=== PATIENT | female | born 1960 | race Two or more races ===

== ENCOUNTER 2016-11-01 07:46 | Outpatient (CLI) | payer MEDICARE ==
[2016-11-01] MEDS ORDERED: REGADENOSON 0.4 MG/5 ML DISP.SYRIN IVP ONE (09:30)
== END 2016-11-01 23:59 | disposition home or self-care (01) ==
LOC: NM 07:46
PROVIDERS: ATTEND Internal Medicine Interventional Cardiology
DX: R06.02 Shortness of breath (principal)
CPT/HCPCS: 78452; A9502; J2785

== ENCOUNTER 2017-05-03 04:59 | Inpatient (IN) | payer MEDICARE, MEDICAID ==
[~2017-05-03] VITALS: Ht 157.5 cm; Wt 76.2 kg
[2017-05-03] MEDS ORDERED: CEFAZOLIN SODIUM/DEXTROSE,ISO 50 ML IV ONE (05:12)
[2017-05-03] MEDS ORDERED: BACITRACIN 50000 UNITS/VIAL ONE (06:18)
[2017-05-03] MEDS ORDERED: ANESTHESIA TRAY IN PYXIS 1 EA TRAY MC ONE (06:18)
[2017-05-03] MEDS ORDERED: KETOROLAC TROMETHAMINE INJ 60 MG/2 ML VIAL IM ONE (06:18)
[2017-05-03] MEDS ORDERED: KETOROLAC TROMETHAMINE INJ 30 MG/ML VIAL ONE (06:20)
[2017-05-03] MEDS ORDERED: MORPHINE SULFATE/PF 10 MG/10ML (1MG/ML) AMPUL ONE (06:51)
[2017-05-03] MEDS ORDERED: MIDAZOLAM HCL 2 MG/2ML VIAL ONE (06:52)
[2017-05-03] MEDS ORDERED: TRANEXAMIC ACID 3,000 MG in SODIUM CHLORIDE IRRIG SOLUTION 70 ML IR ONE (07:30)
[2017-05-03] MEDS ORDERED: SEVOFLURANE 250 ML BOTTLE IH ONE (07:38)
[2017-05-03] MEDS ORDERED: HYDROMORPHONE 2 MG/1 ML SDV ONE (08:16)
[2017-05-03] MEDS ORDERED: FENTANYL PF 100MCG/2ML AMPUL ONE (08:23)
[2017-05-03] MEDS ORDERED: COLACE 250 MG CAPSULE PO PRN (09:00)
[2017-05-03] MEDS ORDERED: SENOKOT 8.6 MG TABLET PO PRN (09:00)
[2017-05-03] MEDS ORDERED: AMBIEN 5 MG TABLET PO PRN (09:00)
[2017-05-03] MEDS ORDERED: HYDROCODONE/APAP 5/325MG 1 EACH TABLET PO PRN ×2 (09:00→11:30)
[2017-05-03] MEDS ORDERED: IV LR 1000 ML 1,000 ML IV PRN (09:00)
[2017-05-03] MEDS ORDERED: DULCOLAX 10 MG/SUPP.RECT RC PRN (09:00)
[2017-05-03] MEDS ORDERED: diphenhydrAMINE HCL 25 MG CAPSULE PO PRN ×2 (09:00→17:00)
[2017-05-03] MEDS ORDERED: ZOFRAN 4mg/2ML IV PRN (09:00)
[2017-05-03] MEDS ORDERED: TYLENOL 650 MG TABLET PO PRN (09:00)
[2017-05-03] MEDS ORDERED: NALOXONE HCL 0.4 MG/ML AMPUL IV PRN ×3 (09:00)
[2017-05-03] MEDS: HYDROMORPHONE 1 MG/1 ML DISP.SYRIN IV PRN ×3 (09:42→14:34)
[2017-05-03] MEDS ORDERED: MORP1CAP12 (10:05)
[2017-05-03] MEDS ORDERED: LEVO75TA7 (10:06)
[2017-05-03] MEDS ORDERED: LORA1TAB (10:06)
[2017-05-03] MEDS ORDERED: PREG75CA (10:06)
[2017-05-03] MEDS ORDERED: DEXT30TA10 (10:06)
[2017-05-03] MEDS ORDERED: RIVA10TA (10:06)
[2017-05-03] MEDS ORDERED: VALA500T35 (10:06)
[2017-05-03] MEDS ORDERED: TIOT18CA3 (10:06)
[2017-05-03 10:30] VITALS: BP 117/61
[2017-05-03 10:45] VITALS: BP 115/62
--- NOTE | 2017-05-03 11:52 | NUR ---
Paged Dr. Joseph for BS 435 and increase pain needs. Pain still 8+ after 2 dose of Dilaudid 1mg and 1 dose of norco 5/325mg
[2017-05-03] MEDS ORDERED: DEXTROSE 50%-WATER 50 ML DISP.SYRIN IV PRN (12:00)
[2017-05-03] MEDS ORDERED: LORAZEPAM 1 MG TABLET PO PRN ×2 (12:30→17:00)
[2017-05-03] MEDS ORDERED: IV D5/0.45 NACL 1,000 ML IV PRN (12:32)
[2017-05-03] MEDS: BLOOD SUGAR DIAGNOSTIC 1 EACH STRIP VI SCH ×3 (12:44→22:03)
[2017-05-03] MEDS: *INSULIN REGULAR(HUMULIN R)HUM 100 UNIT/ML VIAL SQ PRN ×3 (12:53→22:10)
[2017-05-03] MEDS ORDERED: MAGNESIUM HYDROXIDE 30 ML UDC PO PRN (13:00)
[2017-05-03] MEDS ORDERED: ZOLPIDEM TARTRATE 5 MG TABLET PO PRN (13:00)
[2017-05-03] MEDS ORDERED: MAG HYDROX/AL HYDROX/SIMETH 30 ML UDC PO PRN ×2 (13:00→17:00)
[2017-05-03] MEDS ORDERED: ONDANSETRON HCL/PF 4 MG/2 ML VIAL IVP PRN (13:00)
[2017-05-03] MEDS ORDERED: ACETAMINOPHEN 325 MG TABLET PO PRN (13:00)
[2017-05-03] MEDS ORDERED: Z GUARD REMEDY 2 OZ OINT TP PRN (13:00)
[2017-05-03] MEDS: PREGABALIN 25 MG CAPSULE PO SCH ×2 (13:33→17:46)
[2017-05-03] MEDS ORDERED: HYDROCODONE/APAP 10/325MG 1 EA TABLET PO PRN (15:30)
[2017-05-03] MEDS: ANCEF 1 G in IV D5W 50 ML IV SCH ×2 (15:36→23:19)
[2017-05-03 16:00] VITALS: BP 114/69
[2017-05-03] MEDS ORDERED: NICOTINE PATCH (21MG) 21 MG PATCH.TD24 TD ONE (16:36)
[2017-05-03] MEDS ORDERED: MORPHINE SULFATE SR 30 MG TABLET.SA PO ONE (16:36)
[2017-05-03] MEDS ORDERED: ONDANSETRON HCL/PF 4 MG/2 ML VIAL IV PRN (17:00)
[2017-05-03] MEDS ORDERED: MORPHINE SULFATE SR 30 MG TABLET.SA PO SCH (17:00)
[2017-05-03] MEDS: DOCUSATE SODIUM 100 MG CAPSULE PO SCH (17:46)
[2017-05-03] MEDS: RIVAROXABAN 10 MG TABLET PO SCH (17:49)
[2017-05-03] MEDS: VALACYCLOVIR HCL 500 MG TABLET PO SCH (17:50)
[2017-05-03] MEDS: NICOTINE PATCH (21MG) 21 MG PATCH.TD24 TD SCH (17:53)
[2017-05-03] MEDS: oxyCODONE IR immediate release 5 MG CAPSULE PO PRN (17:53)
--- NOTE | 2017-05-03 18:00 | NUR ---
Patient crying and very miserable, asking to take a fast acting medications after informing she already took MS contin. She wanted to use any medication right now to stop her pain. Consulted Charge nurse Marilin if ok to still give immediate oxycodone
--- NOTE | 2017-05-03 19:30 | NUR ---
RN NOTE; RECEIVED THE PT IN BED AWAKE AND ALERT. BREATHING EVENLY. NO SOB. ON CONT O2 SAT MONITORING . SATTING 97% ON O2 AT 2LPM. HEART MONITOR IN PLACE. READING SR. NAD. SKIN WARM AND DRY. REPORTED PAIN TOLERABLE. F/C IN PLACE DRAINING CLEAR YELLOW URINE. ON ONGOING IVF HYDRATION CARY WELL. NEEDS ATTENDED .CALL LIGHT WITHIN REACH. WILL CONT TO MONITOR,
[2017-05-03 20:00] VITALS: BP 116/63
[2017-05-03] MEDS: PANTOPRAZOLE 40 MG TABLET.DR PO SCH (22:03)
[2017-05-04] VITALS (7 sets, daily range): BP systolic 109–134; BP diastolic 61–76
[2017-05-04] MEDS: HYDROMORPHONE 1 MG/1 ML DISP.SYRIN SQ PRN ×5 (00:16→22:32)
--- NOTE | 2017-05-04 00:19 | NUR ---
DILAUDID 1MG GIVEN ORDERED PER PT'S REQUEST FOR C/O PAIN. PAIN IS SCHEDULES FOR MS CONTIN EXTENDED RELEASE AT 0000 HOWEVER PER HER SHE'S HAVING SEVERE PAIN RIGHT NOW AND THE MS CONTIN ER WILL NOT HELP RIGHT AAWAY. PT IS ASKING FOR A PAIN MEDICATION THAT CAN GIVE HER RELIEF OF PAIN INSTANTLY. DILAUDID GIVEN AND EXPLAINED TO THE PT THAT WE WILL HOLD TO THE MS CONTIN FR OA COUPLE OF HOURS TO PREVENT RESPIRATORY DISTRESS. PER PT SHE'S TAKING MS CONTIN 30MG Q 12HRS AT HOME AND THE LAST DOSE WAS GIVEN AT 1747 . PATIENT AGREED. WILL CONT TO MONITOR.
[2017-05-04] MEDS: IPRATROPIUM NEB FS 0.5 MG/2.5 ML AMPUL.NEB NEB SCH ×5 (01:33→20:10)
[2017-05-04] MEDS: MORPHINE SULFATE SR 30 MG TABLET.SA PO SCH ×3 (01:53→16:53)
--- NOTE | 2017-05-04 05:02 | NUR ---
DILAUDID 1MG GIVEN ORDERED PER PT'S REQUEST FOR C/O SEVERE PAIN. PT WAS ASSISTED W/ REPOSITIONING AND APPLYING ICE BAG TO RELIEF THE PAIN. WILL CONT TO MONITOR
--- NOTE | 2017-05-04 06:24 | NUR ---
PT IN BED DOZING INTERMITTENTLY. BREATHING EVENLY. NO SOB. NAD. SKIN WARM AND DRY,. STATED PAIN IS TOLERABLE AFTER RECEIVING DILAUDID. SR ON TELE MONITOR. R HIP DRESSING CDI. ASSISTED W/ ADLS AND ATTEMPTED TO KEEP THE PT COMFORTABLE. ON CONT SO2 MONITORING . HELD THE O2 SAT>97% ON 2LPM. F/C IN PLACE DRAINING CLEAR YELLOW URINE. NEEDS ATTENDED. BED LOW LOCKED. CALL LIGHT WITHIN REACH. WILL CONT TO MONITOR AND WILL ENDORSE TO AM SHIFT FOR ADOLPH.
[2017-05-04] MEDS: BLOOD SUGAR DIAGNOSTIC 1 EACH STRIP VI SCH ×4 (07:03→22:04)
[2017-05-04] MEDS: LEVOTHYROXINE SODIUM 125 MCG TABLET PO SCH (07:03)
[2017-05-04] MEDS: oxyCODONE IR immediate release 5 MG CAPSULE PO PRN ×3 (07:03→19:07)
[2017-05-04] MEDS: INSULIN REGULAR, HUMAN 100 UNIT/ML 3 ML VIAL SQ PRN ×3 (07:08→17:03)
--- NOTE | 2017-05-04 07:10 | NUR ---
OXY IR GIVEN PER PT'S REQUEST AND CONSTANT C/O PAIN. WILL CONT TO MONITOR,
--- NOTE | 2017-05-04 07:40 | NUR ---
SLAG EXPANDER OPENING NOTE PATIENT IS ALERT AND ORIENTED x4. SLEEPING AT THIS TIME, EASILY AROUSABLE. PATIENT STATES 4/10 PAIN, MEDICATION GIVEN. NO SOB OR DISTRESS NOTED. ON 2L/MIN OF OXYGEN VIA NASAL CANNULA TOLERATING WELL. ABLE TO COMMUNICATE NEEDS. S/P RIGHT HIP REPLACEMENT. GONZALEZ CATHETER IN PLACE AND TO BE REMOVED TODAY POST-OP. DIABETIC DIET, FREQUENT BLOOD SUGAR MONITORING. NO IV FLUIDS RUNNING AT THIS TIME. AWAITING FOR AM LAB RESULTS. FIRST DRESSING CHANGE TO BE DONE ON 05/05/17 BY NURSE. WILL CONTINUE TO MONITOR PATIENT
[2017-05-04 08:43] LABS: BASOPHILS % (AUTO) 0.1 % (0.0-2.0); EOSINOPHILS # (AUTO) 0.2 /CMM (0.0-0.7); EOSINOPHILS % (AUTO) 2.1 % (0.0-6.0); HEMATOCRIT 37 % (33-45); HEMOGLOBIN 12.3 g/dL (11.5-14.8); LYMPHOCYTES % (AUTO) 18.2 % (20.0-44.0); MEAN CORPUSCULAR HEMOGLOBIN 29 PG (26.0-33.0); MEAN CORPUSCULAR HGB CONC 33 g/dl (31.0-36.0); MEAN CORPUSCULAR VOLUME 87 fL (82-100); MONOCYTES # (AUTO) 0.7 /CMM (0.1-1.30); MONOCYTES % (AUTO) 6.7 % (2.0-12.0); NEUTROPHILS % (AUTO) 72.9 % (43.0-81.0); PLATELET COUNT (AUTO) 132 /CMM (150-450); RDW COEFFICIENT OF VARIATION 14.1 (11.5-15.0); RED BLOOD CELL COUNT(AUTO) 4.24 MIL/uL (4.0-5.2); RETICULOCYTE COUNT 1.6 % (0.6-2.5)
[2017-05-04 08:49] LABS: ALBUMIN 2.8 g/dL (3.4-5.0); BILIRUBIN,TOTAL 0.4 mg/dL (0.2-1.0); CALCIUM, SERUM 8.5 mg/dL (8.5-10.1); CREATININE 0.6 mg/dL (0.6-1.3); MAGNESIUM 1.8 mg/dL (1.8-2.4); PHOSPHORUS 3.7 mg/dL (2.5-4.9); TOTAL PROTEIN, SERUM 6.5 g/dL (6.4-8.2)
[2017-05-04 08:53] LABS: PREALBUMIN 20.6 MG/DL (18.0-35.7); THYROID STIMULATING HORMONE 2.444 uIU/mL (0.358-3.74)
[2017-05-04] MEDS: DOCUSATE SODIUM 100 MG CAPSULE PO SCH ×2 (08:57→16:52)
[2017-05-04] MEDS: NICOTINE PATCH (21MG) 21 MG PATCH.TD24 TD SCH (08:57)
[2017-05-04] MEDS: PREGABALIN 25 MG CAPSULE PO SCH ×3 (08:58→16:52)
[2017-05-04] MEDS: VALACYCLOVIR HCL 500 MG TABLET PO SCH ×2 (08:58→16:52)
[2017-05-04] MEDS ORDERED: PANTOPRAZOLE 40 MG VIAL IV SCH (09:00)
[2017-05-04] MEDS ORDERED: NICOTINE PATCH (21MG) 21 MG PATCH.TD24 TD SCH ×2 (09:00)
[2017-05-04 09:01] LABS: INR 0.96 (0.87-1.13)
--- NOTE | 2017-05-04 11:30 | NUR ---
MS RN NOTE GONZALEZ CATHETER REMOVED 24 HOUR POST OP. PATIENT TOLERATED GONZALEZ REMOVAL WELL. PATIENT URINATED 125 ML. NO PAIN OR BURNING WHILE URINATING. WILL CONTINUE TO MONITOR
[2017-05-04] MEDS: RIVAROXABAN 10 MG TABLET PO SCH (17:02)
--- NOTE | 2017-05-04 18:45 | NUR ---
MS RN CLOSING NOTE PATIENT IS ALERT AND ORIENTED X4. NO PAIN AT THIS TIME. NO SOB OR DISTRESS NOTED. CALL LIGHT WITHIN REACH AT ALL TIMES. SAFETY MEASURES IMPLEMENTED. ALL DUE MEDICATIONS GIVEN ORDERED. ABLE TO COMMUNICATE NEEDS. S/P RIGHT HIP REPLACEMENT BY DR. WISE ON 05/03/17. AMBULATORY WITH ASSISTANCE. WALKER AT BEDSIDE. BLOOD SUGAR MONITORED THROUGHOUT SHIFT, INSULIN GIVEN NEEDED. GONZALEZ REMOVED, PATIENT TOLERATED WELL. POSSIBLE DISCHARGE TO [facility] TOMORROW, FIRST SURGICAL DRESSING TO BE CHANGED TOMORROW 05/05 BY NURSE AND TO HAND IRRIGATE WITH NORMAL SALINE WITH 100-120 ML. ON 2L/MIN OF OXYGEN VIA NASAL CANNULA TOLERATING WELL. WILL ENDORSE TO VETERINARIAN ASSISTANT NURSE FOR ADOLPH
--- NOTE | 2017-05-04 19:05 | NUR ---
MS RN OPENING NOTES: RECEIVED PT SLEEPING AND RESTING IN BED. PT IS A/OX4. PT ON 2LPM VIA NC AND IS TOLERATING WELL. NO SOB NOTED AT THIS TIME. NO S/S OF DISTRESS NOTED AT THIS TIME.PT IS AMBULATORY WITH ASSISTANCE. WALKER AT BEDSIDE. BED KEPT IN LOW, LOCKED POSITION, AND SIDE RAILS X 2UP. CALL LIGHT WITHIN PT'S REACH. WILL CONTINUE TO MONITOR PT.
[2017-05-04] MEDS: PANTOPRAZOLE 40 MG TABLET.DR PO SCH (22:04)
[2017-05-04] MEDS: *INSULIN REGULAR(HUMULIN R)HUM 100 UNIT/ML VIAL SQ PRN (22:33)
[2017-05-05] MEDS: MORPHINE SULFATE SR 30 MG TABLET.SA PO SCH ×3 (00:05→16:12)
[2017-05-05] MEDS: IPRATROPIUM NEB FS 0.5 MG/2.5 ML AMPUL.NEB NEB SCH ×3 (01:30→13:32)
[2017-05-05] MEDS: BLOOD SUGAR DIAGNOSTIC 1 EACH STRIP VI SCH ×3 (06:31→17:30)
[2017-05-05] MEDS: HYDROMORPHONE 1 MG/1 ML DISP.SYRIN SQ PRN ×2 (06:33→17:12)
--- NOTE | 2017-05-05 06:46 | NUR ---
MS RN NOTES: SPOKE WITH DR. MILLER AND HE SAID TO GIVE THE MS CONTIN AT 0730 BEFORE I LEAVE. WILL ADMINISTER CLOSER TO THAT TIME.
[2017-05-05] MEDS: INSULIN REGULAR, HUMAN 100 UNIT/ML 3 ML VIAL SQ PRN ×3 (07:02→17:20)
--- NOTE | 2017-05-05 07:05 | NUR ---
MS RN NOTES: DR. MILLER AT BEDSIDE.
--- NOTE | 2017-05-05 07:30 | NUR ---
MS RAMOS CLOSING NOTES: ALL NEEDS WERE ATTENDED AND ANTICIPATED FOR. PT IS A/OX4. PT WAS ADMINISTERED HER PAIN MEDS ORDERED. INSULIN WAS ADMINISTERED WELL BASED OFF HER ORDERED SLIDING SCALE. AMBULATORY WITH ASSISTANCE. WALKER AT BEDSIDE. PT STILL ON 2LPM VIA NC AND IS TOLERATING WELL. HOB ELEVATED. ENDORSED TO AM NURSE FOR ADOLPH. Addendum: 05/05/17 at 0747 by WILNER SANDOVAL RN PT HAS IV ON L HAND #20G AND IS PATENT AND INTACT. PT IS TO BE INFUSED WITH IV D5 1/2 NS AT 75ML/HR. PT WAS DISCONNECTED DUE TO USING THE BATHROOM.
--- NOTE | 2017-05-05 07:33 | NUR ---
MS RN OPENING NOTES PT RECEIVED AWAKE IN BED IN NO ACUTE SIGNS OF DISTRESS. A/O X4, SAME VERBALLY RESPONSIVE, NO COMPLAINTS VOICED AT THIS TIME. ON SUPPLEMENTAL 02 VIA N/C AT 2LPM, NO SOB NOTED. IV ACCESS ON LEFT HAND INTACT AND PATENT, IVF OF D5 1/2 NS AT 75ML/HR RECONNECTED, NO SIGNS OF INFILTRATION NOTED. BED IN LOW AND LOCKED POSITION WITH SIDE-RAILS UP X 2. CALL LIGHT WITHIN REACH. WILL CONTINUE TO MONITOR ACCORDINGLY.
[2017-05-05 08:00] VITALS: BP 115/65
[2017-05-05] MEDS: DOCUSATE SODIUM 100 MG CAPSULE PO SCH ×2 (08:11→16:13)
[2017-05-05] MEDS: VALACYCLOVIR HCL 500 MG TABLET PO SCH ×2 (08:11→16:13)
[2017-05-05] MEDS: NICOTINE PATCH (21MG) 21 MG PATCH.TD24 TD SCH (08:11)
[2017-05-05] MEDS: LEVOTHYROXINE SODIUM 125 MCG TABLET PO SCH (08:11)
[2017-05-05] MEDS: PREGABALIN 25 MG CAPSULE PO SCH ×3 (08:12→16:13)
[2017-05-05] MEDS: oxyCODONE IR immediate release 5 MG CAPSULE PO PRN (12:18)
[2017-05-05 16:00] VITALS: BP 126/62
[2017-05-05] MEDS: RIVAROXABAN 10 MG TABLET PO SCH (16:15)
--- NOTE | 2017-05-05 16:43 | NUR ---
RN NOTES DR MIGUEL A PENA CAME, ASSESSED AND CHANGED DRESSING OF RIGHT HIP OPERATIVE SITE.
--- NOTE | 2017-05-05 17:44 | NUR ---
RN NOTES PT FOR DISCHARGE TO [facility] TODAY. REPORT GIVEN TO JENI, RECEIVING NURSE.
--- NOTE | 2017-05-05 18:58 | NUR ---
RN DISCHARGED NOTES PT DISCHARGED TO [facility] IN STABLE CONDITION. A/O X3-4, NO COMPLAINTS VOICED DURING DISCHARGED. PT LEFT UNIT VIA GURNEY AT 1845H ACCOMPANIED BY 2 RELIGIOUS LEADER WITH 02 VIA N/C CONNECTED TO PORTABLE 02 TANK, NO SOB NOTED. IV ACCESS ON RIGHT HAND REMOVED WITH BLEEDING NOTED, PRESSURE GAUZE APPLIED. PT REFUSED VACCINES TO BE GIVEN AND SAID THAT SHE WILL TAKE IT AT [facility]. V/S TAKEN AND RECORDED. PHOTO OF OPERATIVE SITE ON RIGHT HIP NOT TAKEN BEC DRESSING WAS INTACT AND CHANGED BY DR GRADY TODAY. HEALTH TEACHINGS GIVEN AND VERBALIZED UNDERSTANDING. MD AND CHARGE NURSE AWARE OF DISCHARGE.
== END 2017-05-05 18:00 | DRG 470 ==
LOC: DS 04:59 → MED 08:09 → TELE 16:32 → MED 05-04 08:37
PROVIDERS: ADMIT Specialist; ATTEND Internal Medicine
PROC: 0SR90JZ Replacement of Right Hip Joint with Synthetic Substitute, Open Approach (ICD-10-PCS; principal; 2017-05-03 07:19)
DX: M16.11 Unilateral primary osteoarthritis, right hip (principal); D68.59 Other primary thrombophilia; F13.20 Sedative, hypnotic or anxiolytic dependence, uncomplicated; F11.20 Opioid dependence, uncomplicated; E66.9 Obesity, unspecified; E03.9 Hypothyroidism, unspecified; E11.9 Type 2 diabetes mellitus without complications; G47.00 Insomnia, unspecified; G89.4 Chronic pain syndrome; I10 Essential (primary) hypertension; J44.9 Chronic obstructive pulmonary disease, unspecified; Z68.30 Body mass index [BMI] 30.0-30.9, adult; Z71.6 Tobacco abuse counseling; F17.210 Nicotine dependence, cigarettes, uncomplicated
CPT/HCPCS: 36415; 71010-TC; 80053-TC; 80061-TC; 80076-TC; 82150-TC; 82746; 82962-TC; 83540-TC; 83735-TC; 84100-TC; 84134-TC; 84443-TC; 85025-TC; 85045-TC; 85652-TC; 85730-TC; 86850-TC; 86921-TC; 87086-TC; 88305-TC; 88311-TC; 94799-TC; 97110-TC; 97116-TC; 97530-TC; A4217; A4606; A6209; A6402; J0690; J1100; J1170; J1815; J1885; J2250; J2274; J2405; J3010; J3490; J7060; J7120

== ENCOUNTER → 2017-05-23 | Outpatient (CLI) | payer MEDICARE, MEDICAID ==
[~2017-05-23] MED LIST: DEXT30TA10; LEVO75TA7; LORA1TAB; MORP1CAP12; PREG75CA; RIVA10TA; TIOT18CA3; VALA500T36
== END ==
LOC: MSC 14:30
PROVIDERS: ATTEND Internal Medicine
DX: Z47.32 Aftercare following explantation of hip joint prosthesis (principal); M16.11 Unilateral primary osteoarthritis, right hip; E11.40 Type 2 diabetes mellitus with diabetic neuropathy, unspecified; K21.9 Gastro-esophageal reflux disease without esophagitis; E66.9 Obesity, unspecified; I10 Essential (primary) hypertension; E03.9 Hypothyroidism, unspecified; G89.29 Other chronic pain; F90.9 Attention-deficit hyperactivity disorder, unspecified type; Z87.891 Personal history of nicotine dependence; Z96.641 Presence of right artificial hip joint

== ENCOUNTER 2017-07-19 07:18 | Inpatient (IN) | payer MEDICARE, MEDICAID ==
[~2017-07-19] VITALS: Ht 157.5 cm; Wt 78.0 kg
[~2017-07-19 07:18] MED LIST changes: -DEXT30TA10; +DEXT30TA10 PO; -LEVO75TA7; +LEVO75TA7 PO; -LORA1TAB; +LORA1TAB PO; -MORP1CAP12; +MORP1CAP12 PO; -PREG75CA; +PREG75CA PO; -TIOT18CA3; +TIOT18CA3 IH; -VALA500T36; +VALA500T36 PO
[2017-07-19] MEDS ORDERED: CEFAZOLIN SODIUM/DEXTROSE,ISO 50 ML IV ONE (09:09)
[2017-07-19] MEDS ORDERED: KETAMINE HCL (500MG/10ML) 50 MG/ML VIAL ONE (09:12)
[2017-07-19] MEDS ORDERED: MIDAZOLAM HCL 2 MG/2ML VIAL ONE ×2 (09:12→10:28)
[2017-07-19] MEDS ORDERED: FENTANYL PF 100MCG/2ML AMPUL ONE (09:12)
[2017-07-19] MEDS ORDERED: TRANEXAMIC ACID 3,000 MG in SODIUM CHLORIDE IRRIG SOLUTION 70 ML IR ONE (10:00)
[2017-07-19] MEDS ORDERED: BACITRACIN 50000 UNITS/VIAL ONE (10:24)
[2017-07-19] MEDS ORDERED: MORPHINE SULFATE/PF 10 MG/10ML (1MG/ML) AMPUL ONE (10:27)
--- NOTE | 2017-07-19 12:43 | NUR ---
RN OPENING NOTES RECEIVED PATIENT FROM OR. S/P LEFT TOTAL HIP ARTHROPLASTY. NO ACUTE DISTRESS, NO SOB NOTED. DENIES PAIN OR DISCOMFORT AT THE MOMENT. PLACE ON TELEMONITORING, SR 86. IV SITE INTACT AND PATENT. ABDUCTOR PILLOW ON LEGS PRESENT, DVT PUMP ON. PATIENT REFUSED TO CHECK BELONGINGS. KEPT PATIENT SAFE AND COMFORTABLE. BED IN LOCKED, LOW POSITION, SIDERAILS UP X2. WILL CONTINUE TO MONITOR ACCORDINGLY.
[2017-07-19 12:45] VITALS: BP 98/59
[2017-07-19 13:00] VITALS: BP 120/60
[2017-07-19] MEDS ORDERED: ANCEF 1 G in IV D5W 50 ML IV SCH (14:00)
[2017-07-19] MEDS ORDERED: COLACE 250 MG CAPSULE PO PRN (14:00)
[2017-07-19] MEDS ORDERED: DULCOLAX 10 MG/SUPP.RECT RC PRN (14:00)
[2017-07-19] MEDS ORDERED: HYDROMORPHONE 1 MG/1 ML DISP.SYRIN IV PRN (14:00)
[2017-07-19] MEDS ORDERED: TYLENOL 650 MG TABLET PO PRN (14:00)
[2017-07-19] MEDS ORDERED: SENOKOT 8.6 MG TABLET PO PRN (14:00)
[2017-07-19] MEDS ORDERED: IV LR 1000 ML 1,000 ML IV PRN (14:00)
[2017-07-19] MEDS ORDERED: diphenhydrAMINE HCL 50 MG/ML VIAL IV PRN (14:00)
[2017-07-19] MEDS ORDERED: NALOXONE HCL 0.4 MG/ML AMPUL IV PRN ×3 (14:00)
[2017-07-19] MEDS ORDERED: AMBIEN 5 MG TABLET PO PRN (14:00)
[2017-07-19] MEDS ORDERED: ONDANSETRON HCL/PF 4 MG/2 ML VIAL IV PRN (15:00)
[2017-07-19] MEDS ORDERED: HYDROMORPHONE 1 MG/1 ML DISP.SYRIN SQ PRN (15:00)
[2017-07-19] MEDS ORDERED: MAG HYDROX/AL HYDROX/SIMETH 30 ML UDC PO PRN ×2 (15:00→20:00)
[2017-07-19] MEDS ORDERED: diphenhydrAMINE HCL 25 MG CAPSULE PO PRN (15:00)
[2017-07-19] MEDS: MORPHINE SULFATE SR 30 MG TABLET.SA PO SCH ×2 (15:08→21:28)
[2017-07-19] MEDS: NICOTINE PATCH (21MG) 21 MG PATCH.TD24 TD SCH (15:09)
[2017-07-19] MEDS ORDERED: OXYC-133 PO (15:58)
[2017-07-19] MEDS ORDERED: BUDE10.2 INH (15:58)
[2017-07-19] MEDS ORDERED: PANT40TA2 PO (15:58)
[2017-07-19] MEDS ORDERED: Combivent Respimat IH (15:58)
[2017-07-19] MEDS ORDERED: ESCI20TA PO (15:58)
[2017-07-19 16:00] VITALS: BP 104/50
[2017-07-19] MEDS ORDERED: PREGABALIN 25 MG CAPSULE PO SCH ×2 (17:00)
[2017-07-19] MEDS: DOCUSATE SODIUM 100 MG CAPSULE PO SCH (18:37)
[2017-07-19] MEDS: ANCEF 1 G in IV D5W 50 ML IV SCH (18:38)
--- NOTE | 2017-07-19 19:30 | NUR ---
RN CLOSING NOTES NO SIGNIFICANT CHANGE IN PATIENTS CONDITION. NO ACUTE DISTRESS, NO SOB NOTED. PAIN MEDICATIONS GIVEN ORDERED. ALL NEEDS ATTENDED AND PROVIDED. KEPT PATIENT SAFE AND COMFORTABLE. BED IN LOW, LOCKED POSITION, SIDERAILS UP X2, CALL LIGHT IN REACH. ENDORSED TO NIGHT RN FOR ADOLPH.
--- NOTE | 2017-07-19 19:31 | NUR ---
RN NOTES RECEIVED PT AWAKE, ALERT AND ORIENTED X3 ON 2LPM O2 VIA NC AND TOLERATED WELL. PT DENIES NAUSEA AND VOMITING. COMPLAINING OF PAIN ON LEFT HIP, WILL ADMINISTER PAIN MEDICATION. TELEMONITOR READS SINUS RHYTHM WITH HEART RATE AT 73. IV ACCESS ON LEFT FOREARM PATENT AND INTACT. ABDUCTOR PILLOW IN PLACED BETWEEN THE LEGS. PLAN OF CARE DISCUSSED WITH THE PT. FALL PRECAUTION OBSERVED. WILL CONTINUE TO MONITOR PT.
[2017-07-19 20:00] VITALS: BP 101/60
[2017-07-19] MEDS ORDERED: ONDANSETRON HCL/PF 4 MG/2 ML VIAL IVP PRN (20:00)
[2017-07-19] MEDS ORDERED: MAGNESIUM HYDROXIDE 30 ML UDC PO PRN (20:00)
[2017-07-19] MEDS ORDERED: ACETAMINOPHEN 325 MG TABLET PO PRN (20:00)
[2017-07-19] MEDS ORDERED: ZOLPIDEM TARTRATE 5 MG TABLET PO PRN (20:00)
[2017-07-19] MEDS ORDERED: MORPHINE SULFATE INJ 2 MG/ML DISP.SYRIN IV PRN (20:00)
[2017-07-19] MEDS ORDERED: Z GUARD REMEDY 2 OZ OINT TP PRN (20:00)
[2017-07-19] MEDS ORDERED: HYDROCODONE/APAP 5/325MG 1 EACH TABLET PO PRN (20:00)
[2017-07-19] MEDS ORDERED: LORAZEPAM 1 MG TABLET PO PRN (20:30)
[2017-07-19 21:01] LABS: BASOPHILS % (AUTO) 0.2 % (0.0-2.0); EOSINOPHILS # (AUTO) 0.1 /CMM (0.0-0.7); EOSINOPHILS % (AUTO) 0.9 % (0.0-6.0); HEMATOCRIT 32 % (33-45); LYMPHOCYTES # (AUTO) 0.5 /CMM (0.8-4.8); LYMPHOCYTES % (AUTO) 4.3 % (20.0-44.0); MEAN CORPUSCULAR HEMOGLOBIN 28 PG (26.0-33.0); MEAN CORPUSCULAR HGB CONC 35 g/dl (31.0-36.0); MEAN CORPUSCULAR VOLUME 82 fL (82-100); MONOCYTES # (AUTO) 0.2 /CMM (0.1-1.30); MONOCYTES % (AUTO) 1.7 % (2.0-12.0); NEUTROPHILS # (AUTO) 11.1 /CMM (1.8-8.9); NEUTROPHILS % (AUTO) 92.9 % (43.0-81.0); PLATELET COUNT (AUTO) 164 /CMM (150-450); RDW COEFFICIENT OF VARIATION 13.7 (11.5-15.0); RED BLOOD CELL COUNT(AUTO) 3.87 MIL/uL (4.0-5.2); WHITE BLOOD COUNT (AUTO) 11.9 K/uL (4.3-11.0)
[2017-07-19 21:12] LABS: ALBUMIN 2.9 g/dL (3.4-5.0); BILIRUBIN,TOTAL 0.2 mg/dL (0.2-1.0); CALCIUM, SERUM 7.9 mg/dL (8.5-10.1); CREATININE 1.1 mg/dL (0.6-1.3); MAGNESIUM 1.5 mg/dL (1.8-2.4); PHOSPHORUS 3.9 mg/dL (2.5-4.9); POTASSIUM 4.7 mmol/L (3.5-5.1); TOTAL PROTEIN, SERUM 6.6 g/dL (6.4-8.2)
[2017-07-19] MEDS: PANTOPRAZOLE 40 MG TABLET.DR PO SCH (21:28)
[2017-07-19 22:00] VITALS: BP 101/60
--- NOTE | 2017-07-19 22:15 | NUR ---
RN NOTES LAB RESULT RECEIVED BLOOD GLUCOSE 426MG/DL AND ACCUCHECK DONE WHICH READS 451MG/DL DR ZHONG MADE AWARE WITH NEW ORDERS MADE.
[2017-07-19] MEDS ORDERED: DEXTROSE 50%-WATER 50 ML DISP.SYRIN IV PRN (23:00)
[2017-07-19] MEDS ORDERED: INSULIN GLARGINE, 100 UNIT/ML CARTRIDGE SQ SCH (23:00)
[2017-07-19] MEDS: BLOOD SUGAR DIAGNOSTIC 1 EACH STRIP VI SCH (23:07)
[2017-07-19] MEDS: *INSULIN REGULAR(HUMULIN R)HUM 100 UNIT/ML VIAL SQ PRN (23:15)
[2017-07-20] VITALS: BP 100/61
[2017-07-20] MEDS ORDERED: INSULIN DETEMIR 100 UNIT/ML CARTRIDGE SQ ONE (00:06)
[2017-07-20] MEDS: INSULIN DETEMIR 100 UNIT/ML CARTRIDGE SQ SCH ×2 (01:17→22:00)
[2017-07-20] MEDS: ANCEF 1 G in IV D5W 50 ML IV SCH (01:21)
[2017-07-20 04:00] VITALS: BP 104/55
[2017-07-20] MEDS: MORPHINE SULFATE SR 30 MG TABLET.SA PO SCH ×3 (05:25→22:29)
[2017-07-20] MEDS: BLOOD SUGAR DIAGNOSTIC 1 EACH STRIP VI SCH ×5 (06:58→22:46)
[2017-07-20] MEDS: INSULIN REGULAR, HUMAN 100 UNIT/ML 3 ML VIAL SQ PRN ×4 (07:06→22:44)
--- NOTE | 2017-07-20 07:20 | NUR ---
RN OPEN NOTES RECEIVED REPORT FROM DIRECTOR HOUSEKEEPING NURSE. PATIENT IS IN BED, ALERT AND ORIENTED TO NAME PLACE AND TIME. NO SIGNS AND SYMPTOMS OF DISTRESS. PAIN LEVEL 8/10 ON THE LEFT HIP, WILL ADMINISTER PAIN MED. BED IN LOW POSITION, LOCKED AND TWO SIDE RAILS ARE UP. CALL LIGHT WITH IN REACH FOR SAFETY. WILL CONTINUE TO MONITOR AND ASSESS PATIENT THROUGH OUT MY SHIFT
[2017-07-20 07:25] VITALS: BP 104/56
--- NOTE | 2017-07-20 07:25 | NUR ---
RN NOTES PT SLEEP WELL OVERNIGHT. VITAL SIGNS STABLE, AFEBRILE. CURRENT DIET TOLERATED WELL, NO EPISODE OF NAUSEA AND VOMITING. KEPT PAIN AT TOLERABLE LEVEL. TELEMONITOR READS SINUS RHYTHM WITH HEART RATE 76. BLOOD SUGAR MONITORED, NO SIGNS OF HYPO OR HYPERGLYCEMIA. ALL NEEDS ATTENDED. FALL PRECAUTION OBSERVED. wILL CONTINUE TO MONITOR PT.
[2017-07-20] MEDS: IPRATROPIUM NEB FS 0.5 MG/2.5 ML AMPUL.NEB NEB SCH ×3 (07:35→20:10)
[2017-07-20] MEDS ORDERED: Magnesium 1GM/D5W 100ML PREMIX PIGGYBACK IV ONE (08:30)
[2017-07-20] MEDS: oxyCODONE/APAP (5/325 MG) 1 UDTAB TABLET PO SCH ×2 (08:41→12:15)
[2017-07-20] MEDS: NICOTINE PATCH (21MG) 21 MG PATCH.TD24 TD SCH (08:41)
[2017-07-20] MEDS: LEVOTHYROXINE SODIUM 75 MCG TABLET PO SCH (08:42)
[2017-07-20] MEDS: DOCUSATE SODIUM 100 MG CAPSULE PO SCH ×2 (08:42→16:51)
[2017-07-20] MEDS ORDERED: PANTOPRAZOLE 40 MG TABLET.DR PO SCH (09:00)
[2017-07-20] MEDS ORDERED: RIVAROXABAN 10 MG TABLET PO SCH (09:00)
[2017-07-20] MEDS ORDERED: MORPHINE SULFATE PO SCH (09:00)
[2017-07-20] MEDS ORDERED: PREGABALIN 25 MG CAPSULE PO SCH (09:00)
[2017-07-20] MEDS ORDERED: Budesonide/Formoterol Fumarate (Symbicort 160-4.5 Mcg In INH SCH (09:00)
[2017-07-20] MEDS ORDERED: NALTREXONE PO SCH (09:00)
[2017-07-20] MEDS ORDERED: AMPHET PO SCH (09:00)
[2017-07-20] MEDS ORDERED: TIOTROPIUM BROMIDE 6 CAP/BOX CAP.W.DEV IH SCH (09:00)
[2017-07-20] MEDS ORDERED: D AMPHET PO SCH (09:00)
[2017-07-20] MEDS ORDERED: AMPHET ASP PO SCH (09:00)
[2017-07-20 09:07] LABS: BASOPHILS % (AUTO) 0.1 % (0.0-2.0); EOSINOPHILS % (AUTO) 0.2 % (0.0-6.0); HEMATOCRIT 30 % (33-45); HEMOGLOBIN 10.4 g/dL (11.5-14.8); LYMPHOCYTES % (AUTO) 8.8 % (20.0-44.0); MEAN CORPUSCULAR HEMOGLOBIN 28 PG (26.0-33.0); MEAN CORPUSCULAR HGB CONC 35 g/dl (31.0-36.0); MEAN CORPUSCULAR VOLUME 82 fL (82-100); MONOCYTES # (AUTO) 0.6 /CMM (0.1-1.30); MONOCYTES % (AUTO) 5.8 % (2.0-12.0); NEUTROPHILS # (AUTO) 9.2 /CMM (1.8-8.9); NEUTROPHILS % (AUTO) 85.1 % (43.0-81.0); PLATELET COUNT (AUTO) 174 /CMM (150-450); RDW COEFFICIENT OF VARIATION 13.8 (11.5-15.0); RED BLOOD CELL COUNT(AUTO) 3.67 MIL/uL (4.0-5.2); WHITE BLOOD COUNT (AUTO) 10.9 K/uL (4.3-11.0)
[2017-07-20 09:11] LABS: CALCIUM, SERUM 8.4 mg/dL (8.5-10.1); CREATININE 0.6 mg/dL (0.6-1.3); MAGNESIUM 1.9 mg/dL (1.8-2.4); PHOSPHORUS 3.4 mg/dL (2.5-4.9); POTASSIUM 4.3 mmol/L (3.5-5.1)
[2017-07-20] MEDS ORDERED: Magnesium 1GM/D5W 100ML PREMIX 100 ML IV SCH (10:00)
[2017-07-20] MEDS ORDERED: MORPHINE SULFATE INJ 4 MG/ML DISP.SYRIN IV PRN (12:14)
--- NOTE | 2017-07-20 14:17 | NUR ---
RT NOTE PATIENT RECEIVED AT THIS TIME. WILL START ROUTINE TX FROM NOW ON.
[2017-07-20] MEDS ORDERED: HYDROMORPHONE 1 MG/1 ML DISP.SYRIN SQ ONE (15:00)
[2017-07-20 16:00] VITALS: BP 97/54
[2017-07-20] MEDS: oxyCODONE IR immediate release 5 MG PO PRN (16:02)
[2017-07-20] MEDS: LORAZEPAM 1 MG TABLET PO PRN (16:52)
[2017-07-20] MEDS: RIVAROXABAN 10 MG TABLET PO SCH (16:53)
--- NOTE | 2017-07-20 19:30 | NUR ---
RN OPENING NOTES PATIENT IS IN BED, ALERT AND ORIENTED X4. NO SOB NOTED. RESPIRATIONS EVEN AND UNLABORED. C/O PAIN 8/10 IN LEFT LEG. IV ACCESS ON LEFT FA SL INTACT AND PATENT, FLUSHES WELL WITH NS, NO REDNESS OR INFILTRATION NOTED. BED IN LOW AND LOCKED POSITION, SIDE RAILS X2. CALL LIGHT WITHIN EASY REACH. WILL CONTINUE TO MONITOR AND ASSESS DURING THE SHIFT.
--- NOTE | 2017-07-20 19:36 | NUR ---
RN CLOSING NOTES GAVE REPORT TO HATCHERY LABORER NURSE. PATIENT IS IN BED, AWAKE. ALERT AND ORIENTED TO NAME PLACE AND TIME. ALL NURSING CARE ANTICIPATED AND ATTENDED FOR. SKIN IS INTACT. NO NEW CHANGES DURING THE SHIFT. BED IN LOW POSITION, LOCKED AND TWO SIDE RAILS ARE UP. CALL LIGHT WITHIN REACH FOR SAFETY. IV SITE IS PATENT AND INTACT. PATIENT REMAINED CLEAN AND SAFE
[2017-07-20 20:00] VITALS: BP_SYST 106; BP_SYST 118; BP_DIAS 50; BP_DIAS 53
[2017-07-20] MEDS: HYDROMORPHONE 1 MG/1 ML DISP.SYRIN SQ PRN (20:10)
[2017-07-20] MEDS: ESCITALOPRAM OXALATE (10 MG) 10 MG TABLET PO SCH (22:29)
[2017-07-20] MEDS: PANTOPRAZOLE 40 MG TABLET.DR PO SCH (22:29)
[2017-07-21] MEDS: HYDROMORPHONE 1 MG/1 ML DISP.SYRIN SQ PRN ×5 (01:02→18:53)
[2017-07-21] MEDS: IPRATROPIUM NEB FS 0.5 MG/2.5 ML AMPUL.NEB NEB SCH ×4 (01:30→20:40)
[2017-07-21] MEDS: LORAZEPAM 1 MG TABLET PO PRN (02:55)
[2017-07-21] MEDS: MORPHINE SULFATE SR 30 MG TABLET.SA PO SCH ×3 (06:16→21:29)
[2017-07-21] MEDS: BLOOD SUGAR DIAGNOSTIC 1 EACH STRIP VI SCH ×4 (06:19→21:31)
[2017-07-21] MEDS: INSULIN REGULAR, HUMAN 100 UNIT/ML 3 ML VIAL SQ PRN ×3 (06:21→17:29)
--- NOTE | 2017-07-21 06:56 | NUR ---
RN CLOSING NOTES PATIENT IS SLEEPING IN BED, EASY TO AROUSE, ALERT AND ORIENTED X4. NO SOB NOTED. RESPIRATIONS EVEN AND UNLABORED. IV ACCESS ON LEFT FA SL INTACT AND PATENT, FLUSHES WELL WITH NS, NO REDNESS OR INFILTRATION NOTED. ALL NEEDS ARE MET AND MEDICATIONS GIVEN PER MD ORDER. BED IN LOW AND LOCKED POSITION, SIDE RAILS X2. CALL LIGHT WITHIN EASY REACH. WILL ENDORSE TO RN DAY SHIFT FOR ADOLPH.
--- NOTE | 2017-07-21 07:20 | NUR ---
MS RN OPENING NOTES RECEIVED PT FROM NIGHTSHIFT NURSE IN STABLE CONDITION. PT IS A/O X4. NO SOB NOTED./ PT COMPLAINS OF A DULL THROBBING PAIN AROUND HER LEFT HIP. WILL ADMINISTER PRN PAIN MEDICATION. IV NOTED TO BE PATENT AND INTACT. GONZALEZ CATHETER NOTED TO BE DRAINING CLEAR YELLOW URINE. BED IN LOW LOCKED POSITION, SIDE RAILS UP X2, CALL LIGHT WITHIN REACH. WILL CONTINUE TO MONITOR
[2017-07-21 08:00] VITALS: BP 124/63
[2017-07-21] MEDS: DOCUSATE SODIUM 100 MG CAPSULE PO SCH ×2 (08:43→17:34)
[2017-07-21] MEDS: NICOTINE PATCH (21MG) 21 MG PATCH.TD24 TD SCH (08:43)
[2017-07-21] MEDS: LEVOTHYROXINE SODIUM 75 MCG TABLET PO SCH (08:43)
[2017-07-21] MEDS: PREGABALIN 25 MG CAPSULE PO SCH ×2 (14:22→17:35)
--- NOTE | 2017-07-21 14:29 | NUR ---
MALINI NOTES AWILDAA WAS VERIFIED BY PHARMACY. PER DORIS, "IT IS OKAY TO GIVE THE 0900 DOSE NOW AND CONTINUE SCHEDULED". DOSE ADMINISTERED
[2017-07-21 16:00] VITALS: BP 128/63
[2017-07-21] MEDS ORDERED: ASPIRIN 325 MG TABLET ONE (16:05)
[2017-07-21] MEDS: RIVAROXABAN 10 MG TABLET PO SCH (17:36)
--- NOTE | 2017-07-21 18:42 | NUR ---
MS RN CLOSING NOTES PT REMAINS STABLE. SHE COMPLAINS OF PAIN RATED AND 9/10. WILL ADMINISTER PRN PAIN MEDICATION BEFORE LEAVING. GONZALEZ CATHETER REMOVED PER HOSPITAL PROTOCOL. PT VOIDED, 200ML OF CLEAR YELLOW URINE POST CATHETER REMOVAL. DRESSING CHANGE COMPLETED ORDERED BY MD. WOUND AND SKIN CARE RENDERED. SAFETY MEASURES REMAIN IN PLACE. WILL ENDORSE TO NIGHTSHIFT NURSE FOR ADOLPH
--- NOTE | 2017-07-21 19:30 | NUR ---
RN OPENING NOTES PATIENT IS SLEEPING IN BED, EASY TO AROUSE, ALERT AND ORIENTED X4. NO SOB NOTED. RESPIRATIONS EVEN AND UNLABORED. IV ACCESS ON LEFT FA SL INTACT AND PATENT, FLUSHES WELL WITH NS, NO REDNESS OR INFILTRATION NOTED. BED IN LOW AND LOCKED POSITION, SIDE RAILS X2. CALL LIGHT WITHIN EASY REACH. WILL CONTINUE TO MONITOR AND ASSESS DURING THE SHIFT.
[2017-07-21 20:00] VITALS: BP 120/65
[2017-07-21] MEDS: PANTOPRAZOLE 40 MG TABLET.DR PO SCH (21:29)
[2017-07-21] MEDS: ESCITALOPRAM OXALATE (10 MG) 10 MG TABLET PO SCH (21:29)
[2017-07-21] MEDS: *INSULIN REGULAR(HUMULIN R)HUM 100 UNIT/ML VIAL SQ PRN (21:37)
[2017-07-21] MEDS: INSULIN DETEMIR 100 UNIT/ML CARTRIDGE SQ SCH (22:00)
--- NOTE | 2017-07-21 22:00 | NUR ---
RN NOTES BS 187. NO LEVEMIR ADMINISTERED. PATIENT IS IN PAIN, SHE HAS NOT BEEN EATING WELL THE WHOLE DAY. CONTINUE TO MONITOR.
[2017-07-22] MEDS: IPRATROPIUM NEB FS 0.5 MG/2.5 ML AMPUL.NEB NEB SCH ×3 (00:51→13:09)
[2017-07-22] MEDS: HYDROMORPHONE 1 MG/1 ML DISP.SYRIN SQ PRN ×5 (00:59→15:40)
[2017-07-22] MEDS: MORPHINE SULFATE SR 30 MG TABLET.SA PO SCH ×2 (04:59→14:20)
[2017-07-22] MEDS: BLOOD SUGAR DIAGNOSTIC 1 EACH STRIP VI SCH ×2 (06:28→12:34)
[2017-07-22] MEDS: INSULIN REGULAR, HUMAN 100 UNIT/ML 3 ML VIAL SQ PRN (06:28)
--- NOTE | 2017-07-22 06:56 | NUR ---
RN CLOSING NOTES PATIENT IS IN BED, ALERT AND ORIENTED X4. NO SOB NOTED. RESPIRATIONS EVEN AND UNLABORED. IV ACCESS ON LEFT FA SL INTACT AND PATENT, NO REDNESS OR INFILTRATION NOTED. ALL NEEDS ARE MET AND MEDICATIONS GIVEN PER MD GAMBLE. BED IN LOW AND LOCKED POSITION, SIDE RAILS X2. CALL LIGHT WITHIN EASY REACH. WILL ENDORSE TO RN DAY SHIFT FOR ADOLPH.
--- NOTE | 2017-07-22 08:00 | NUR ---
MS RN RECEIVED ON BED, AWAKE,ALERT ORIENTED X4, PATIENT ALWAYS ASKING FOR PAIN MEDS, NOT IN ANY FORM OF DISTRESS, RESPIRATIONS EVEN AND UNLABORED NO SOB NOTED, LUNGS ARE CLEAR,ABDOMEN SOFT,POSITIVE BOWEL SOUNDS, DENIES PAIN AT THIS TIME, ALL NEEDS ATTENDED.
[2017-07-22 08:30] VITALS: BP 118/56
[2017-07-22] MEDS ORDERED: PREGABALIN 25 MG CAPSULE PO SCH (09:00)
--- NOTE | 2017-07-22 09:00 | NUR ---
MS RN BREAKFAST SERVED,DUE MEDS GIVEN, TOLERATED WELL. S/P LEFT HIP SX W/ DRESSING DRY AND INTACT.
[2017-07-22] MEDS: NICOTINE PATCH (21MG) 21 MG PATCH.TD24 TD SCH (09:07)
[2017-07-22] MEDS: DOCUSATE SODIUM 100 MG CAPSULE PO SCH (09:07)
[2017-07-22] MEDS: LEVOTHYROXINE SODIUM 75 MCG TABLET PO SCH (09:27)
[2017-07-22] MEDS: oxyCODONE IR immediate release 5 MG PO PRN (10:09)
--- NOTE | 2017-07-22 13:00 | NUR ---
MS RN BLOODGAR - 256 - PATIENT REFUSED COVERAGE BECAUSE SHE ALREADY EAT WHEN BS CHECK.
--- NOTE | 2017-07-22 16:50 | NUR ---
MS RN PATIENT TRANSFERED TO [facility], REPORT GIVEN TO [place],ALL NEEDS ATTENDED.
== END 2017-07-22 17:21 | DRG 470 ==
LOC: DS 07:18 → MED 13:01 → TELE 14:28 → MED 07-20 09:14
PROVIDERS: ADMIT Specialist; ATTEND Internal Medicine
PROC: 0SRB0JZ Replacement of Left Hip Joint with Synthetic Substitute, Open Approach (ICD-10-PCS; principal; 2017-07-19 15:50)
DX: M16.12 Unilateral primary osteoarthritis, left hip (principal); E11.40 Type 2 diabetes mellitus with diabetic neuropathy, unspecified; E03.9 Hypothyroidism, unspecified; I10 Essential (primary) hypertension; F32.9 Major depressive disorder, single episode, unspecified; F41.9 Anxiety disorder, unspecified; K21.9 Gastro-esophageal reflux disease without esophagitis; J44.9 Chronic obstructive pulmonary disease, unspecified; F90.9 Attention-deficit hyperactivity disorder, unspecified type; Z96.651 Presence of right artificial knee joint; F17.210 Nicotine dependence, cigarettes, uncomplicated; Z71.6 Tobacco abuse counseling
CPT/HCPCS: 36415; 80048-TC; 80053-TC; 80061-TC; 82962-TC; 83735-TC; 84100-TC; 85025-TC; 86850-TC; 86921-TC; 88305-TC; 88311-TC; 94799-TC; 97110-TC; 97116-TC; 97530-TC; A4217; A6209; A6253; A6402; J0690; J1100; J1170; J1815; J2250; J2270; J2274; J2405; J2704; J3010; J3475; J3490; J7030; J7060; J7120; Z7610

== ENCOUNTER 2017-07-24 13:30 | Emergency (ER) | payer MEDICARE, MEDICAID ==
[~2017-07-24] VITALS: Ht 165.1 cm; Wt 74.8 kg
[~2017-07-24 13:30] MED LIST changes: +BUDE10.2 INH; +Combivent Respimat IH; +ESCI20TA PO; +OXYC-133 PO; +PANT40TA2 PO; -VALA500T36 PO
--- NOTE | 2017-07-24 13:37 | NUR ---
PT BIBRA TO ER BED 09 C/O L HIP PAIN R/T GROIN AREA S/P HIP SURGERY 5 DAYS AGO. STATES NOT BEEN RECIEVING PAIN MEDICATION. STABLE VITALS. AWAITING MD HERNANDEZ.
--- NOTE | 2017-07-24 14:43 | NUR ---
DR LAMB AT BEDSIDE FOR EVAL.
--- NOTE | 2017-07-24 15:13 | NUR ---
IV LINE STARTED BLOOD DRAWN AND SENT TO LAB.
[2017-07-24 15:17] LABS: BASOPHILS % (AUTO) 0.3 % (0.0-2.0); EOSINOPHILS # (AUTO) 0.3 /CMM (0.0-0.7); EOSINOPHILS % (AUTO) 3.5 % (0.0-6.0); HEMATOCRIT 32 % (33-45); HEMOGLOBIN 11.1 g/dL (11.5-14.8); LYMPHOCYTES # (AUTO) 1.5 /CMM (0.8-4.8); LYMPHOCYTES % (AUTO) 18.6 % (20.0-44.0); MEAN CORPUSCULAR HEMOGLOBIN 28 PG (26.0-33.0); MEAN CORPUSCULAR HGB CONC 35 g/dl (31.0-36.0); MEAN CORPUSCULAR VOLUME 80 fL (82-100); MONOCYTES # (AUTO) 0.6 /CMM (0.1-1.30); MONOCYTES % (AUTO) 7.4 % (2.0-12.0); NEUTROPHILS # (AUTO) 5.7 /CMM (1.8-8.9); NEUTROPHILS % (AUTO) 70.2 % (43.0-81.0); PLATELET COUNT (AUTO) 189 /CMM (150-450); RDW COEFFICIENT OF VARIATION 13.5 (11.5-15.0); RED BLOOD CELL COUNT(AUTO) 3.98 MIL/uL (4.0-5.2); WHITE BLOOD COUNT (AUTO) 8.1 K/uL (4.3-11.0)
[2017-07-24] MEDS ORDERED: HYDROMORPHONE 1 MG/1 ML DISP.SYRIN ONE (15:18)
[2017-07-24 15:28] LABS: CALCIUM, SERUM 8.4 mg/dL (8.5-10.1); CREATININE 0.6 mg/dL (0.6-1.3)
[2017-07-24] MEDS ORDERED: HYDROMORPHONE INJ 2 MG/ML DISP.SYRIN IV ONE (15:30)
[2017-07-24 15:36] LABS: INR 0.94 (0.87-1.13)
--- NOTE | 2017-07-24 18:26 | NUR ---
CALLED [facility] FOR TRANSPORT ETA, 1HR ETA WAS GIVEN
[2017-07-24] MEDS ORDERED: oxyCODONE/APAP (5/325 MG) 1 UDTAB TABLET PO ONE (19:30)
[2017-07-24] MEDS ORDERED: oxyCODONE/APAP (5/325 MG) 1 UDTAB TABLET ONE (19:30)
--- NOTE | 2017-07-24 19:41 | NUR ---
transport ambulace at bedside for pt transport back to snf. d/c in stable condition. IV removed. Catheter intact and site benign. Pressure and 4x4 applied to site. No bleeding noted.
[2017-07-24 19:43] VITALS: BP 136/80
== END 2017-07-24 19:45 | disposition home or self-care (01) ==
LOC: ER 13:32
DX: M25.552 Pain in left hip (principal); G89.18 Other acute postprocedural pain; D64.9 Anemia, unspecified; E03.9 Hypothyroidism, unspecified; E11.9 Type 2 diabetes mellitus without complications; F32.9 Major depressive disorder, single episode, unspecified; F41.9 Anxiety disorder, unspecified; F90.9 Attention-deficit hyperactivity disorder, unspecified type; I70.0 Atherosclerosis of aorta; J44.9 Chronic obstructive pulmonary disease, unspecified; K21.9 Gastro-esophageal reflux disease without esophagitis; K59.00 Constipation, unspecified; M79.7 Fibromyalgia; Z96.642 Presence of left artificial hip joint; Z98.890 Other specified postprocedural states; Z88.8 Allergy status to other drugs, medicaments and biological substances
CPT/HCPCS: 36415; 71045; 80048; 85025; 85730; 93971; 96374; 99285; A4606; J1170; Z7610

== ENCOUNTER 2017-09-13 08:22 | Inpatient (IN) | payer MEDICARE, MEDICAID ==
[~2017-09-13] VITALS: Ht 157.5 cm; Wt 79.8 kg
--- NOTE | 2017-09-13 08:30 | NUR ---
PRESENTS TO ER C/O COUGH/CONGESTION/SOB X 2 DAYS. USES INHALER WITH NO RELIEF. PT HAS HX OF COPD, SMOKER. A/OX 4. BREATHING EVEN AND UNLABORED, WITH NON PRODUCTIVE COUGH. O2 SAT 86% ON ROOM AIR. 3L OXYGEN APPLIED UPON ARRIVAL. NAD, VITALS STABLE. SAFETY AND COMFORT MEASURES IN PLACE. AWAITING MD ORDERS.
[2017-09-13] MEDS ORDERED: methylPREDNISolone SOD SUCC 125 MG/2ML VIAL ONE (08:39)
--- NOTE | 2017-09-13 08:40 | NUR ---
NEW IV STARTED ON LFA, 20 G. BLOOD DRAWN AND SENT TO LAB.
[2017-09-13] MEDS ORDERED: IPRATROPIUM NEB FS 0.5 MG/2.5 ML AMPUL.NEB ONE (08:43)
[2017-09-13] MEDS ORDERED: ALBUTEROL FS 2.5 MG/3 ML VIAL.NEB ONE (08:43)
--- NOTE | 2017-09-13 08:45 | NUR ---
PATIENT MEDICATED PER MD ORDERS.
[2017-09-13 08:56] LABS: BASOPHILS % (AUTO) 0.6 % (0.0-2.0); EOSINOPHILS # (AUTO) 0.6 /CMM (0.0-0.7); EOSINOPHILS % (AUTO) 10.8 % (0.0-6.0); HEMATOCRIT 40 % (33-45); HEMOGLOBIN 12.9 g/dL (11.5-14.8); LYMPHOCYTES # (AUTO) 1.8 /CMM (0.8-4.8); LYMPHOCYTES % (AUTO) 34.4 % (20.0-44.0); MEAN CORPUSCULAR HEMOGLOBIN 26 PG (26.0-33.0); MEAN CORPUSCULAR HGB CONC 33 g/dl (31.0-36.0); MEAN CORPUSCULAR VOLUME 81 fL (82-100); MONOCYTES # (AUTO) 0.3 /CMM (0.1-1.30); MONOCYTES % (AUTO) 6.2 % (2.0-12.0); NEUTROPHILS # (AUTO) 2.5 /CMM (1.8-8.9); PLATELET COUNT (AUTO) 201 /CMM (150-450); RDW COEFFICIENT OF VARIATION 15.9 (11.5-15.0); WHITE BLOOD COUNT (AUTO) 5.3 K/uL (4.3-11.0)
[2017-09-13] MEDS ORDERED: IPRATROPIUM NEB FS 0.5 MG/2.5 ML AMPUL.NEB NEB ONE (09:00)
[2017-09-13] MEDS ORDERED: ALBUTEROL FS 2.5 MG/3 ML VIAL.NEB CONTNEB ONE (09:00)
[2017-09-13] MEDS ORDERED: methylPREDNISolone SOD SUCC 125 MG/2ML VIAL IV ONE (09:00)
[2017-09-13 09:06] LABS: CALCIUM, SERUM 7.6 mg/dL (8.5-10.1); CARBON DIOXIDE 28 mmol/L (21-32); CHLORIDE 107 mmol/L (98-107); CREATININE 0.7 mg/dL (0.6-1.3); GLUCOSE 194 mg/dL (74-106); SODIUM SERUM 144 mmol/L (136-145); UREA NITROGEN, BLOOD 8 mg/dL (7-18)
[2017-09-13 09:18] LABS: TROPONIN I < 0.017 ng/mL (0.00-0.056)
[2017-09-13 09:21] LABS: ALANINE AMINOTRANSFERASE 20 U/L (12-78); ALBUMIN 3.1 g/dL (3.4-5.0); ALKALINE PHOSPHATASE 93 U/L (46-116); ASPARTATE AMINOTRANSFERASE 16 U/L (15-37); B-TYPE NATRIURETIC PEPTIDE 110 PG/ML (0-125); BILIRUBIN,DIRECT 0.1 mg/dL (0.0-0.2); BILIRUBIN,TOTAL 0.3 mg/dL (0.2-1.0); TOTAL PROTEIN, SERUM 7.2 g/dL (6.4-8.2)
[2017-09-13] MEDS ORDERED: ALBU2.5V11 IH (09:59)
--- NOTE | 2017-09-13 12:25 | NUR ---
REPORT GIVEN TO ALYX RAMOS FOR ADOLPH UPON ADMISSION.
--- NOTE | 2017-09-13 12:40 | NUR ---
PATIENT TRANSPORTED TO [facility] VIA ACLS PROTOCOL FOR ADMISSION. [facility] TO PROVIDE ADOLPH.
[2017-09-13 12:45] VITALS: BP 142/76
--- NOTE | 2017-09-13 12:45 | NUR ---
RN NOTES ADMISSION RECEIVED PT. IN A GURNEY IN MEDICALLY STABLE CONDITION. PT. IS A&OX4, WITH NASAL CANNULA AT 2L/MIN ON OXYGEN. NO SOB, BREATHING UNLABORED. WILL CONTINUE TO ASSESS AND MONITOR. RECEIVED REPORT FROM EMERGENCY DEPT. VIA PHONE PRIOR TO RECEIVING PT. ON . PT. IS GOING TO ROOM 313 BED 2.
[2017-09-13] MEDS ORDERED: MAG HYDROX/AL HYDROX/SIMETH 30 ML UDC PO PRN (13:30)
[2017-09-13] MEDS ORDERED: MAGNESIUM HYDROXIDE 30 ML UDC PO PRN (13:30)
[2017-09-13] MEDS ORDERED: ONDANSETRON HCL/PF 4 MG/2 ML VIAL IVP PRN (13:30)
[2017-09-13] MEDS ORDERED: ZOLPIDEM TARTRATE 5 MG TABLET PO PRN (13:30)
[2017-09-13] MEDS ORDERED: HYDROCODONE/APAP 10/325MG 1 EA TABLET PO PRN (13:30)
[2017-09-13] MEDS ORDERED: ACETAMINOPHEN 325 MG TABLET PO PRN (13:30)
[2017-09-13] MEDS: HYDROCODONE/APAP 5/325MG 1 EACH TABLET PO PRN (14:51)
[2017-09-13] MEDS: ENOXAPARIN SODIUM 40 MG/0.4 ML DISP.SYRIN SQ SCH (14:53)
[2017-09-13 16:00] VITALS: BP 125/63
[2017-09-13] MEDS ORDERED: INSU100V7 SQ (16:18)
[2017-09-13] MEDS ORDERED: METF500T4 PO (16:18)
[2017-09-13] MEDS ORDERED: OXYC-133 PO (16:23)
[2017-09-13] MEDS ORDERED: AMPHET ASP/AMPHET/D-AMPHET 10 MG TABLET PO SCH (17:00)
--- NOTE | 2017-09-13 17:30 | NUR ---
RN NOTES MEDICATION RECONCILIATION NURSE INTERVIEWED PT. DUE TO PT. STATING SHE IS TAKING METFORMIN 500 MG BID, AND LANTUS 68 UNITS FOR DIABETES MANAGEMENT. INFORMED HUMAN SERVICES MANAGER THAT MEDICATION RECONCILIATION WAS COMPLETED BY NURSE AND IS AVAILABLE.
[2017-09-13] MEDS: PREGABALIN 25 MG CAPSULE PO SCH (18:24)
[2017-09-13] MEDS: methylPREDNISolone SOD SUCC 40 MG/ML VIAL IV SCH (18:25)
[2017-09-13] MEDS: IV NS 0.9% 1,000 ML IV PRN (18:33)
--- NOTE | 2017-09-13 19:00 | NUR ---
RN CLOSING/TELE NOTES PT. IS IN BED A&OX4. NO SOB, BREATHING UNLABORED, AND EVENLY ON OXYGEN AT 2L/MIN VIA NASAL CANNULA. NO S/S OF ACUTE DISTRESS. IV FLUIDS RUNNING AT 75 ML/HR. PT. WAS SEEN BY SPIKE DRIVER. BED IS IN LOWEST AND LOCKED POSITION, CALL LIGHT IS WITHIN REACH. ENDORSED TO NURSE THAT MEDICATIONS RECONCILIATION NURSE INPUT ADDITIONAL MEDICATIONS AND STORE SALES MANAGER WAS NOTIFIED.
--- NOTE | 2017-09-13 19:30 | NUR ---
RN NOTES RECEIVED PATIENT IN BED AWAKE, AO X 3, ABLE TO MAKE NEEDS KNOWN. NO ACUTE DISTRESS NOTED. DENIES ANY PAIN AT THIS TIME. TELE READING SINUS RHYTHM HR 82. IV SITE PATENT, INTACT; IVF INFUSING ORDERED. SAFETY REMINDERS GIVEN. ON LOW BED WITH BILATERAL UPPER SIDE RAILS UP. CALL LEON WITHIN EASY REACH. WILL CONTINUE TO MONITOR.
[2017-09-13 20:00] VITALS: BP 136/77
[2017-09-13] MEDS: ALBUTEROL FS 2.5 MG/3 ML VIAL.NEB NEB SCH (20:59)
[2017-09-13] MEDS: IPRATROPIUM NEB FS 0.5 MG/2.5 ML AMPUL.NEB NEB SCH (20:59)
[2017-09-14] VITALS: BP 136/63
[2017-09-14] MEDS: ALBUTEROL FS 2.5 MG/3 ML VIAL.NEB NEB SCH ×4 (01:12→19:50)
[2017-09-14] MEDS: IPRATROPIUM NEB FS 0.5 MG/2.5 ML AMPUL.NEB NEB SCH ×4 (01:12→19:50)
[2017-09-14 04:00] VITALS: BP 133/70
--- NOTE | 2017-09-14 06:37 | NUR ---
RN NOTES PATIENT ASLEEP, EASILY AROUSABLE. RESPIRATIONS EVEN. NO SIGNS OF PAIN NOTED. NEEDS ATTENDED. SAFETY PRECAUTIONS AND COMFORT MEASURES IN PLACE. WILL GIVE REPORT TO DAY SHIFT FOR CONTINUITY OF CARE.
[2017-09-14] MEDS: IV NS 0.9% 1,000 ML IV PRN (07:07)
--- NOTE | 2017-09-14 07:10 | NUR ---
RN NOTES PT IS LAYING DOWN IN BED, RESTING COMFORTABLY. PT ON 2L O2, RESPIRATIONS ARE EVEN AND UNLABORED. IV ON LFA INTACT AND RUNNING NS @ 75ML/HR. NO SIGNS OF DISTRESS NOTED. SAFETY MEASURES ARE IN PLACE, CALL LIGHT IS IN REACH. WILL CONTINUE TO MONITOR.
[2017-09-14 07:13] LABS: BASOPHILS % (AUTO) 0.1 % (0.0-2.0); HEMATOCRIT 39 % (33-45); HEMOGLOBIN 12.8 g/dL (11.5-14.8); LYMPHOCYTES # (AUTO) 0.8 /CMM (0.8-4.8); LYMPHOCYTES % (AUTO) 8.9 % (20.0-44.0); MEAN CORPUSCULAR HEMOGLOBIN 27 PG (26.0-33.0); MEAN CORPUSCULAR HGB CONC 33 g/dl (31.0-36.0); MEAN CORPUSCULAR VOLUME 81 fL (82-100); MONOCYTES # (AUTO) 0.5 /CMM (0.1-1.30); NEUTROPHILS # (AUTO) 8.2 /CMM (1.8-8.9); PLATELET COUNT (AUTO) 212 /CMM (150-450); RED BLOOD CELL COUNT(AUTO) 4.77 MIL/uL (4.0-5.2); WHITE BLOOD COUNT (AUTO) 9.5 K/uL (4.3-11.0)
[2017-09-14 07:45] LABS: THYROID STIMULATING HORMONE 0.45 uIU/mL (0.358-3.74)
[2017-09-14 07:47] LABS: CALCIUM, SERUM 8.5 mg/dL (8.5-10.1); CREATININE 0.7 mg/dL (0.6-1.3); MAGNESIUM 1.8 mg/dL (1.8-2.4); PHOSPHORUS 3.3 mg/dL (2.5-4.9); POTASSIUM 4.3 mmol/L (3.5-5.1)
[2017-09-14 08:00] VITALS: BP 139/71
[2017-09-14] MEDS: methylPREDNISolone SOD SUCC 40 MG/ML VIAL IV SCH ×3 (08:04→16:01)
[2017-09-14] MEDS: LEVOTHYROXINE SODIUM 75 MCG TABLET PO SCH (08:04)
[2017-09-14] MEDS: PANTOPRAZOLE 40 MG TABLET.DR PO SCH (08:04)
[2017-09-14] MEDS: ESCITALOPRAM OXALATE (10 MG) 10 MG TABLET PO SCH (08:04)
[2017-09-14] MEDS: PREGABALIN 25 MG CAPSULE PO SCH ×2 (08:05→16:01)
[2017-09-14] MEDS: FLUTICASONE/VILANTEROL 1 EACH BLST.W.DEV IH SCH (08:05)
[2017-09-14] MEDS: ENOXAPARIN SODIUM 40 MG/0.4 ML DISP.SYRIN SQ SCH (08:10)
[2017-09-14 16:00] VITALS: BP 139/74
[2017-09-14] MEDS: INSULIN LISPRO/ASPART 100 UNIT/ML CARTRIDGE SQ SCH (18:00)
--- NOTE | 2017-09-14 18:30 | NUR ---
RN NOTES PT IS SITTING UP IN BED, ALERT AND AWAKE, RESTING COMFORTABLY. PT ON 2L O2, RESPIRATIONS ARE EVEN AND UNLABORED. IV ON LFA INTACT AND RUNNING NS @ 75ML/HR. ALL MEDS WERE GIVEN ORDERED AND PT NEEDS MET. ACCUCHECK WAS DONE @ 1800, 5 UNITS GIVEN ORDERED DOSE. BREATHING TX DONE ORDERED. SAFETY MEASURES ARE IN PLACE, CALL LIGHT IS IN REACH. WILL ENDORSE TO PIANO TECHNICIAN RN FOR CONTINUITY OF CARE.
[2017-09-14] MEDS ORDERED: *INSULIN REGULAR(HUMULIN R)HUM 100 UNIT/ML VIAL SQ PRN (19:30)
[2017-09-14] MEDS ORDERED: DEXTROSE 50%-WATER 50 ML DISP.SYRIN IV PRN (19:30)
[2017-09-14] MEDS: BLOOD SUGAR DIAGNOSTIC 1 EACH STRIP VI SCH ×2 (19:30→22:13)
[2017-09-14 20:00] VITALS: BP 117/56
--- NOTE | 2017-09-14 20:00 | NUR ---
tele/rn opening notes PATIENT IN BED, A;ERT, ORIENTED X3, ABLE TO VERBALIZE NEEDS, DENIES PAIN, ON OXYGEN VIA NASAL CANULA , RESPIRATIONS EVEN AND UNLABORED, BLOOD SUGAR MONITORING DUE TO ELEVATED, MD GARZA ORDER FOR SLIDING SACMARIUSZ AND FEDERICABE LONG ACTING TO BE GIVEN TONIGHT/ABLE TO AMBULATE TO BATHROOM, ON TELE AT SR 78. LFA GUAGE PATENT AND NO S/S OF INFILTRATION. WILL CONTINUE TO MONITOR,
[2017-09-14] MEDS ORDERED: INSULIN GLARGINE, 100 UNIT/ML CARTRIDGE SQ SCH (22:00)
[2017-09-15] VITALS: BP_SYST 138; BP_SYST 141; BP_DIAS 70; BP_DIAS 73
[2017-09-15] MEDS: IV NS 0.9% 1,000 ML IV PRN (00:49)
[2017-09-15] MEDS: ALBUTEROL FS 2.5 MG/3 ML VIAL.NEB NEB SCH ×3 (01:32→13:56)
[2017-09-15] MEDS: IPRATROPIUM NEB FS 0.5 MG/2.5 ML AMPUL.NEB NEB SCH ×3 (01:32→13:56)
[2017-09-15 04:00] VITALS: BP 139/73
--- NOTE | 2017-09-15 06:10 | NUR ---
TELE/RN NOTES RT WAS CALLED FOR REGARDING BREATHING TX FOR PATIENT WHEEZING
[2017-09-15] MEDS: BLOOD SUGAR DIAGNOSTIC 1 EACH STRIP VI SCH ×2 (06:21→12:12)
--- NOTE | 2017-09-15 06:28 | NUR ---
TELE/RN NOTES PATIENT ALERT, ORIENTED ABLE TO VERBALIZE NEEDS, REQUIRE BREATHING TREATMENT DUE TO WHEEZING, CAN AMBULATE TO BATHROOM WITH SUPERVISION, BLOOD SUGAR CHECK AT 245.SKIN WARM TO TOUCH, TELE MONITOR WITH SR 85. CALL LIGHTS WITHIN REACH. BED IN LOCK POSITION. WILL ENDORSE TO AM RN FOR ADOLPH.
[2017-09-15] MEDS: INSULIN REGULAR, HUMAN 100 UNIT/ML 3 ML VIAL SQ PRN ×2 (06:45→12:16)
[2017-09-15] MEDS: PANTOPRAZOLE 40 MG TABLET.DR PO SCH (07:30)
--- NOTE | 2017-09-15 07:37 | NUR ---
TELE/RN OPENING NOTE PATIENT IN BED IN STABLE CONDITION. A/O X 3. NO SIGNS OF ACUTE DISTRESS. NO COMPLAIN OF PAIN OR DISCOMFORT. ON TELE MONITOR WITH SINUS RHYTHM. TOLERATING WELL. ALL NEEDS ATTENDED TO. CALL LIGHT WITHIN REACH. WILL CONTINUE TO MONITOR TO ENSURE SAFETY.
[2017-09-15 08:26] VITALS: BP 136/69
[2017-09-15] MEDS: FLUTICASONE/VILANTEROL 1 EACH BLST.W.DEV IH SCH (08:32)
[2017-09-15] MEDS: LEVOTHYROXINE SODIUM 75 MCG TABLET PO SCH (08:34)
[2017-09-15] MEDS: methylPREDNISolone SOD SUCC 40 MG/ML VIAL IV SCH ×2 (08:35→12:11)
[2017-09-15] MEDS: ESCITALOPRAM OXALATE (10 MG) 10 MG TABLET PO SCH (08:35)
[2017-09-15] MEDS: PREGABALIN 25 MG CAPSULE PO SCH (08:35)
[2017-09-15] MEDS: ENOXAPARIN SODIUM 40 MG/0.4 ML DISP.SYRIN SQ SCH (08:37)
[2017-09-15] MEDS: HYDROCODONE/APAP 5/325MG 1 EACH TABLET PO PRN (08:53)
[2017-09-15] MEDS ORDERED: NICOTINE PATCH (14MG) 14 MG PATCH.TD24 TD SCH (09:00)
[2017-09-15] MEDS: INSULIN LISPRO/ASPART 100 UNIT/ML CARTRIDGE SQ SCH (09:01)
[2017-09-15 12:27] VITALS: BP 136/65
[2017-09-15 16:52] VITALS: BP 153/79
--- NOTE | 2017-09-15 18:09 | NUR ---
TELE/SLUNK SKIN CURER PATIENT DISCHARGE HOME IN STABLE CONDITION. A/O X 4. NO SIGNS OF ACUTE DISTRESS. NO COMPLAIN OF PAIN OR DISCOMFORT. DISCHARGE INSTRUCTIONS AND TEACHINGS PROVIDED, REGARDING MEDICATIONS, DIAGNOSIS, SIGNS AND SYMPTOMS, VERBALIZED UNDERSTANDING. ALSO MADE AWARE TO FOLLOW UP WITH PRIMARY WITHIN A WEEK. ALL NEEDS ATTENDED TO. NAME BAND AND IV LINE REMOVED. LEFT VIA PRIVATE CAR UBER, SELF ACCOMPANIED.
== END 2017-09-15 17:54 | disposition home or self-care (01) | DRG 189 ==
LOC: ER 08:23 → TELE 12:08
PROVIDERS: ADMIT Nurse Practitioner Acute Care; ATTEND Nurse Practitioner Acute Care
DX: J96.01 Acute respiratory failure with hypoxia (principal); E11.65 Type 2 diabetes mellitus with hyperglycemia; E44.1 Mild protein-calorie malnutrition; J44.1 Chronic obstructive pulmonary disease with (acute) exacerbation; F17.210 Nicotine dependence, cigarettes, uncomplicated; E03.9 Hypothyroidism, unspecified; E66.9 Obesity, unspecified; Z68.32 Body mass index [BMI] 32.0-32.9, adult; F32.9 Major depressive disorder, single episode, unspecified; F41.9 Anxiety disorder, unspecified; E88.09 Other disorders of plasma-protein metabolism, not elsewhere classified; Z96.643 Presence of artificial hip joint, bilateral; Z71.6 Tobacco abuse counseling; Z71.3 Dietary counseling and surveillance; Z79.84 Long term (current) use of oral hypoglycemic drugs; Z79.4 Long term (current) use of insulin
CPT/HCPCS: 36415; 71045-TC; 80048-TC; 80061-TC; 80076-TC; 82962-TC; 83735-TC; 83880; 84100-TC; 84443-TC; 84484-TC; 85025-TC; 87081-TC; 94799-TC; A4606; J1650; J1815; J2920; J2930; J7030; Z7610

== ENCOUNTER 2017-11-02 19:49 | Emergency (ER) | payer MEDICARE, MEDICAID ==
[~2017-11-02] VITALS: Ht 157.5 cm; Wt 75.7 kg
[~2017-11-02 19:49] MED LIST changes: +ALBU2.5V11 IH; -Combivent Respimat IH; -DEXT30TA10 PO; +INSU100V7 SQ; +METF-440 PO; -RIVA10TA
--- NOTE | 2017-11-02 19:49 | NUR ---
PT BIBSELF C/O RIGHT RIB PAIN S/P CLEANING TOILET. PT STATES "ITS HARD TO BREATH". PAIN 03/19 WITH VSS NAD. WILL CONTINUE TO MONITOR FOR ANY CHANGES
[2017-11-02] MEDS ORDERED: HYDROCODONE/APAP 5/325MG 1 EACH TABLET ONE (20:40)
[2017-11-02] MEDS ORDERED: ALBUTEROL FS 2.5 MG/3 ML VIAL.NEB ONE (20:41)
[2017-11-02] MEDS ORDERED: IPRATROPIUM NEB FS 0.5 MG/2.5 ML AMPUL.NEB ONE (20:41)
[2017-11-02] MEDS: HYDROCODONE/APAP 5/325MG 1 EACH TABLET PO ONE (20:42)
[2017-11-02] MEDS: ALBUTEROL FS 2.5 MG/3 ML VIAL.NEB CONTNEB ONE (20:45)
[2017-11-02] MEDS: IPRATROPIUM NEB FS 0.5 MG/2.5 ML AMPUL.NEB NEB ONE (20:45)
[2017-11-02 21:53] VITALS: BP 141/92
== END 2017-11-02 21:53 | disposition home or self-care (01) ==
LOC: ER 19:52
DX: M94.0 Chondrocostal junction syndrome [Tietze] (principal); J44.9 Chronic obstructive pulmonary disease, unspecified; E11.9 Type 2 diabetes mellitus without complications; Z79.4 Long term (current) use of insulin; Z96.642 Presence of left artificial hip joint; Z88.8 Allergy status to other drugs, medicaments and biological substances
CPT/HCPCS: 71100-TC; A4606; Z7610